=== PATIENT | male | born 1985 | race African-American/Black ===

== ENCOUNTER 2017-10-14 12:51 | Emergency (ER) | payer MEDICAID ==
[2017-10-14] MEDS: SOD CHLORIDE 0.9% 1,000 ML IV ×2 (13:24→14:06)
[2017-10-14] MEDS: LORAZEPAM 2 MG INJ IV (13:24)
== END 2017-10-14 20:00 | disposition home or self-care (01) ==
LOC: E/R 20:00
DX: F15.90 Other stimulant use, unspecified, uncomplicated (principal); R07.9 Chest pain, unspecified; R00.2 Palpitations; R41.82 Altered mental status, unspecified
CPT/HCPCS: 70450; 71045; 93005; 96361; 96374; 99285-25